=== PATIENT | female | born 1955 | race Caucasian/White ===

== ENCOUNTER 2016-10-16 11:16 | Day surgery (SDC) | payer BC ==
[~2016-10-16 11:16] MED LIST: CYMB60CA PO; ERGO50000 PO; FIORINAL2 PO; MELO15 PO; SYNT112T PO
[2016-10-16] MEDS ORDERED: MUPIROCIN 2% OINT 1 APPLIC/GM SYR NASAL SCH (12:00)
[2016-10-16] MEDS ORDERED: METOPROLOL TARTRATE 25 MG TAB PO PRN (12:00)
[2016-10-16] MEDS ORDERED: POVIDONE IODINE 5% (ANTISEPSIS KIT) 4 APPLICATIONS EACH NARE SCH ×2 (12:00)
[2016-10-16] MEDS ORDERED: CHLORHEXIDINE GLUCONATE 2 % 1 PACK (2 CLOTHS) TOP SCH ×2 (12:00)
[2016-10-16] MEDS ORDERED: SODIUM CHLORID 0.9% 500 ML IV SCH (12:00)
[2016-10-16] MEDS ORDERED: LACTATED RINGER'S 1000 ML IV SCH (12:00)
[2016-10-16] MEDS ORDERED: ceFAZolin 2 GM PREMIX 50 ML IV SCH (12:00)
[2016-10-16] MEDS ORDERED: INSULIN HUMAN REGULAR 1,000 UNITS/10 ML VIAL SQ PRN (12:00)
[2016-10-16] MEDS ORDERED: DULO1CAP2 PO (12:10)
[2016-10-16] MEDS ORDERED: DULO1CAP3 PO (12:10)
[2016-10-16] MEDS ORDERED: ASPI81CH CHEW (12:10)
[2016-10-16] MEDS ORDERED: CYAN50002 SL (12:10)
[2016-10-16] MEDS ORDERED: SYNT112T PO (12:10)
[2016-10-16] MEDS ORDERED: ZOCO80TA PO (12:10)
[2016-10-16] MEDS ORDERED: PLAV75TA29 PO (12:10)
[2016-10-16] MEDS ORDERED: OMEG100010 PO (12:10)
[2016-10-16] MEDS ORDERED: FOLI5CAP PO (12:10)
[2016-10-16] MEDS ORDERED: PANT40TA3 PO (12:10)
[2016-10-16] MEDS ORDERED: BUTACAP77 PO (12:10)
[2016-10-16] MEDS ORDERED: FERR1TAB36 PO (12:10)
[2016-10-16] MEDS ORDERED: COQ-100C2 PO (12:10)
[2016-10-16] MEDS ORDERED: CHOL50006 (12:10)
[2016-10-16] MEDS ORDERED: PROPOFOL 200 MG/20 ML AMP IV ONE (12:28)
--- NOTE | 2016-10-17 10:37 | EKG ---
Date Performed: 10/16/2016 Time Performed: 11:50:48 PTAGE: 61 years EKG: --- Warning: Data quality may affect interpretation --- Sinus rhythm Normal ECG PREVIOUS TRACING : 05/24/2012 06.43 DOCTOR: Dillan Barney Interpretating Date/Time 10/17/2016 10:35:45
--- NOTE | 2016-10-17 12:04 | MR ---
cc: DIANA BAZAN DATE: 10/16/2016 INDICATION CVA, evaluation for atrial fibrillation. PROCEDURE PERFORMED Placement of Medtronic Reveal LINQ MRI compatible loop monitor. ACCESS SITE Left subclavicular area. ANESTHESIA Moderate sedation, fentanyl IV. EQUIPMENT USED Medtronic Reveal LINQ, model LMQ11, MRI compatible loop monitor, serial number [id number]. COMPLICATIONS None. ESTIMATED BLOOD LOSS Less than 10 cc. PROCEDURE After the patient was prepped and draped in the usual sterile manner, local anesthesia was administered. A Medtronic Reveal LINQ loop monitor was placed without difficulty. R-wave was 0.55 millivolts. The patient remained stable. DIAGNOSIS Successful placement of Reveal LINQ, MRI compatible loop monitor. DISPOSITION Ms. Gomes remained stable after the procedure. She will be discharged home later today. I will see her back for follow-up in our office after discharge. MD SHANON Saldana/TAMIKA /2:36 PM /11:56 AM [email or web address]
--- NOTE | 2016-10-18 12:34 | CF ---
cc: DIANA BAZAN PROCEDURE PERFORMED Transesophageal echocardiogram. INDICATION CVA, evaluation for cardiac source of emboli and PFO. PROCEDURE After the patient was sedated by anesthesia, a transesophageal probe was placed without difficulty. Tomographic images were obtained. Left ventricular function was preserved with an estimated ejection fraction of 60% with no wall motion abnormalities. Left atrial appendage was visualized, there was no evidence of left atrial thrombus. Mitral valve was structurally normal. There was no evidence of mitral stenosis. There was evidence of mild mitral regurgitation. Tricuspid valve was structurally normal. There was no evidence of tricuspid stenosis. There was evidence of trace tricuspid regurgitation. The aortic valve was structurally normal. There was no evidence of aortic stenosis or regurgitation. Bubble study was performed and there was no evidence of right to left shunt. Descending thoracic aorta had no significant plaque. DIAGNOSIS 1. No evidence of left atrial thrombus. 2. No evidence of right to left shunt. 3. Preserved left ventricular systolic function. 4. Mild mitral regurgitation. 5. Trace tricuspid regurgitation. IMPRESSION No evidence of cardiac source of emboli or PFO. MD SHANON Saldana/TLMiguelina /5:42 PM /12:19 PM PIPER
== END 2016-10-16 15:34 | disposition home or self-care (01) ==
LOC: HDOC 11:16 → HDIC 11:17 → HDOC 15:34
PROVIDERS: ATTEND Internal Medicine Interventional Cardiology
DX: I48.91 Unspecified atrial fibrillation (principal); I63.40 Cerebral infarction due to embolism of unspecified cerebral artery; H53.123 Transient visual loss, bilateral; I10 Essential (primary) hypertension; A81.2 Progressive multifocal leukoencephalopathy; E78.00 Pure hypercholesterolemia, unspecified; E03.9 Hypothyroidism, unspecified
CPT/HCPCS: 01922; 33282; 93005; 93312; 93320; 93325; C1764; J0690; J3010